=== PATIENT | male | born 1985 | race African-American/Black ===

== ENCOUNTER 2016-11-24 15:17 | Emergency (ER) | payer OTHER ==
[2016-11-24 15:26] VITALS: BP 125/80; PULSE 68; TEMP 98.2; BMI 27.1
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
== END 2016-11-24 16:14 | disposition home or self-care (01) ==
LOC: JERFT 15:17
DX: Z03.89 Encounter for observation for other suspected diseases and conditions ruled out (principal)
CPT/HCPCS: 99281-25